=== PATIENT | male | born 1975 | race Two or more races ===

== ENCOUNTER 2020-03-27 17:36 | Emergency (ER) | payer SELFPAY ==
[~2020-03-27] VITALS: Ht 170.2 cm; Wt 90.0 kg
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
--- NOTE | 2020-03-27 18:46 | RAD ---
Exam: Left knee 3 views INDICATION: Left knee pain and abrasions after fall TECHNIQUE: Frontal, lateral and oblique views of the left knee Comparisons: None FINDINGS: Bone mineralization is normal. No acute or healed fractures. Soft tissues are unremarkable. Joint spaces are well-maintained. IMPRESSION: No acute or healed fractures. Electronically signed by: Юлия Choudhury MD (03/27/2020 6:43 PM) [facility]
[2020-03-27] MEDS ORDERED: ACETAMINOPHEN 500 MG TABLET PO ONE (19:15)
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
[2020-03-27 20:20] VITALS: BP 136/81
== END 2020-03-27 20:20 | disposition home or self-care (01) ==
LOC: ER 17:36
DX: S00.11XA Contusion of right eyelid and periocular area, initial encounter (principal); S00.03XA Contusion of scalp, initial encounter; S80.212A Abrasion, left knee, initial encounter; S09.90XA Unspecified injury of head, initial encounter; E78.00 Pure hypercholesterolemia, unspecified; M50.321 Other cervical disc degeneration at C4-C5 level; M50.322 Other cervical disc degeneration at C5-C6 level; Y08.89XA Assault by other specified means, initial encounter; Y93.89 Activity, other specified; Y92.89 Other specified places as the place of occurrence of the external cause; Y99.8 Other external cause status
CPT/HCPCS: 70450; 70480; 72125; 73562; 99285